=== PATIENT | male | born 1975 | race Caucasian/White ===

== ENCOUNTER 2016-12-27 17:04 | Emergency (ER) | payer OTHER ==
[~2016-12-27] VITALS: Wt 169.5 kg
[~2016-12-27 17:04] MED LIST: CYCL-319 PO; HYDR-3498 PO; NAPR-260 PO
[2016-12-27] MEDS ORDERED: ONDANSETRON 4 MG INJ IV STA (17:49)
[2016-12-27] MEDS ORDERED: morphine 4 MG/ML VIAL IV STA (17:49)
[2016-12-27] MEDS ORDERED: SOD CHLORIDE 0.9% 1,000 ML IV STA (17:49)
[2016-12-27] MEDS ORDERED: BUPR300T48 PO (18:00)
[2016-12-27] MEDS ORDERED: VENL75CA89 PO (18:00)
[2016-12-27 18:08] LABS: BASOPHIL # 0.1 10^3/ul (0.0-0.1); BASOPHILS % 0.3 % (0.0-2.0); CONDITION 1; EOSINOPHILS % 0.2 % (0.0-7.0); HEMATOCRIT 45.6 % (42.0-52.0); HEMOGLOBIN 15.9 g/dl (14.0-18.0); LYMPHOCYTES # 2.4 10^3/ul (0.8-2.9); LYMPHOCYTES % 14.7 % (15.0-51.0); MEAN CORPUSCULAR HEMOGLOBIN 30.6 pg (29.0-33.0); MEAN CORPUSCULAR HGB CONC 34.8 g/dl (32.0-37.0); MEAN CORPUSCULAR VOLUME 87.9 fl (82.0-101.0); MEAN PLATELET VOLUME 9.4 fl (7.4-10.4); MONOCYTE # 0.6 10^3/ul (0.3-0.9); MONOCYTES % 3.8 % (0.0-11.0); NEUTROPHIL # 13.2 10^3/ul (1.6-7.5); PLATELET COUNT 295 10^3/UL (140-440); RED BLOOD COUNT 5.19 10^6/ul (4.70-6.10); RED CELL DISTRIBUTION WIDTH 14.4 % (11.5-14.5); UNCORRECTED WBC 16.3 10^3/ul (4.8-10.8); WHITE BLOOD COUNT 16.3 10^3/ul (4.8-10.8)
[2016-12-27 18:19] LABS: ALBUMIN 4.5 g/dl (3.3-4.9); CHLORIDE 104 mmol/L (97-110); POTASSIUM 4.2 mmol/L (3.5-5.1); SODIUM 145 mmol/L (135-144)
[2016-12-27 18:21] LABS: BILIRUBIN,INDIRECT 0.5 mg/dl (0-1.1); BILIRUBIN,TOTAL 0.5 mg/dl (0.2-1.3); CREATININE 1.09 mg/dl (0.61-1.24)
[2016-12-27 18:22] LABS: ALANINE AMINOTRANSFERASE 36 IU/L (13-69); ALBUMIN/GLOBULIN RATIO 1.18; ALKALINE PHOSPHATASE 103 IU/L (42-121); ANION GAP 19 (8-16); ASPARTATE AMINO TRANSFERASE 25 IU/L (15-46); BLOOD UREA NITROGEN 18 mg/dl (7-20); CARBON DIOXIDE 26 mmol/L (21-31); GLUCOSE 154 mg/dl (70-220); TOTAL PROTEIN 8.3 g/dl (6.1-8.1)
[2016-12-27 18:26] LABS: INR 0.93; PROTIME 12.5 Sec (12.2-14.2)
[2016-12-27 18:27] LABS: PARTIAL THROMBOPLASTIN TIME 28.4 Sec (25.0-35.0)
[2016-12-27] MEDS ORDERED: HYDROmorphONE 1 MG/ML SYG IV STA (18:29)
[2016-12-27 18:34] LABS: TROPONIN-I < 0.012 ng/ml (0.00-0.12)
--- NOTE | 2016-12-27 19:15 | RADRPT ---
PROCEDURE: CT abdomen and pelvis without IV contrast. CLINICAL INDICATION: Abdominal pain TECHNIQUE: CT scan of the abdomen and pelvis without contrast was performed on the [facility] volumetric [address] scanner. The patient was scanned without intravenous contrast. Coronal and sagittal refo rmatted images were obtained from the axial source images. The CTDI vol is 23.80 mGy and the DLP is 1592.8 mGy-cm. COMPARISON: None. FINDINGS: CT abdomen: The lung bases are clear. The heart size is not enlarged and is without pericardial thickening or e ffusion. The liver is normal in size with fatty infiltration and is without focal mass or intrahepatic biliar y dilatation. The spleen is normal in size and homogeneous in density. The stomach is grossly unre markable. The pancreas as visualized is normal. A gallstone is seen. The common bile duct dilatat ion is seen. multiple bilateral adrenal nodules are seen. The largest nodule is seen in the left ad renal gland measuring approximately 1.8 cm in maximal diameter. The kidneys are symmetrically unrem arkable as well. Mild to moderate right hydronephrosis is seen. No obstructing stone or mass is see n. Hyperdense lesion is seen in the lower pole of the right kidney measuring approximately 5 x 5.1 cm in size. Mild right perinephric soft tissue stranding is seen. No renal calculus or mass lesio n is seen. The aorta is of normal in caliber. There is no retroperitoneal lymphadenopathy. The caren hepatis region is clear. The small and large bowel and mesentery, as visualized, are unremarkable. The norm al appendix is identified. CT pelvis: The pelvic organs are normal. The pelvic sidewalls and inguinal regions are clear. No pelvic mass, lymphadenopathy, or free fluid is seen. No acute inflammation is seen. The urinary bladder is wit hin normal limits. Degenerative spondylosis of the lumbar spine is seen. No osteolytic or osteoblastic lesion is detec arsen. IMPRESSION: 1. Mild to moderate right hydronephrosis without evidence of obstructing stone. The findings may b e secondary to a pass stone. The possibility of a ureteropelvic junction obstruction should also be considered. 2. Cholelithiasis. 3. Hyperdense right adrenal structure, questionable at this represents a hyperdense cyst. Confirma tion with a renal ultrasound is recommended. 4. Fatty infiltration of the liver. 5. Bilateral adrenal nodules. Consider further evaluation with a CT adrenal protocol or MRI as cli nically warranted. RPTAT: HPNM Reinaldo Wolf Physician Date Time Electronically viewed and signed by Reinaldo Wolf, Physician on 12/27/2016 19:15 /
[2016-12-27 19:48] LABS: URINE BLOOD (Dip) POC 2+ (NEGATIVE)
[2016-12-27 20:09] LABS: ADD UMIC YES; URINE BILIRUBIN (Dip) NEGATIVE (NEGATIVE); URINE BLOOD (Dip) 2+ (NEGATIVE); URINE COLOR LT. YELLOW (YELLOW); URINE GLUCOSE (Dip) NEGATIVE (NEGATIVE); URINE KETONES (Dip) 40 (NEGATIVE); URINE LEUKOCYTE ESTERASE (Dip) NEGATIVE (NEGATIVE); URINE NITRITE (Dip) NEGATIVE (NEGATIVE); URINE TOTAL PROTEIN (Dip) TRACE (NEGATIVE); URINE UROBILINOGEN (Dip) 0.2 E.U./dL (0.1-1.0)
[2016-12-27 20:30] LABS: BACTERIA,URINE FEW; TRANSITIONAL EPI CELLS,URINE FEW
[2016-12-27] MEDS ORDERED: ONDA4TAB14 PO (20:38)
[2016-12-27] MEDS ORDERED: HYDR-902 PO (20:38)
[2016-12-27] MEDS ORDERED: IBUP-1542 PO (20:38)
--- NOTE | 2016-12-27 20:40 | ERD ---
ER Documentation Chief Complaint Date/Time DATE: 12/27/16 TIME: 20:39 Chief Complaint r. sided abd pain, n/v. actively wretching in triage, sweating heavily HPI Patient is a 41-year-old male with no medical problems who presents with abdominal pain. The patient's right lower quadrant abdominal pain and vomiting which started today at 12 PM. It is been continuous vomiting and he does have sweating. He has had no treatment as of yet. The pain is sharp in nature. ROS All systems reviewed and are negative except as per history of present illness. Medications Home Meds Active Scripts Ondansetron (Ondansetron Odt) 4 Mg Tab.rapdis, 4 MG PO Q6H Y for NAUSEA AND/OR VOMITING, #30 TAB Prov:KEREN QUIROZ MD 12/27/16 Hydrocodone/Acetaminophen ([place] 10-325 Tablet) 1 Each Tablet, 1 TAB PO Q6H Y for PAIN, #12 TAB Prov:KEREN QUIROZ MD 12/27/16 Ibuprofen* (Motrin*) 600 Mg Tab, 600 MG PO Q6H Y for PAIN AND OR ELEVATED TEMP, #30 TAB Prov:KEREN QUIROZ MD 12/27/16 Reported Medications Venlafaxine Hcl* (Venlafaxine Hcl ER*) 75 Mg Cap.er.24h, 75 MG PO DAILY, CAP 12/27/16 Bupropion Hcl* (Wellbutrin XL*) 300 Mg Tab.sr.24h, 300 MG PO DAILY, TAB.SA 12/27/16 Discontinued Scripts Cyclobenzaprine Hcl* (Cyclobenzaprine Hcl*) 10 Mg Tablet, 10 MG PO TID, #15 TAB Prov:PINA GALARZA PA-C 02/20/16 Naproxen* (Naprosyn*) 500 Mg Tablet, 500 MG PO BID Y for PAIN AND/OR INFLAMMATION, #30 TAB Prov:PINA GALARZA PA-C 02/20/16 Hydrocodone Bit-Acetaminophen* ([place]*) 5-325 Mg Tab, 1 TAB PO Q6 Y for PAIN, # 7 TAB Prov:PINA GALARZA PA-C 02/20/16 Allergies Allergies: Coded Allergies: No Known Allergy (Unverified , 12/27/16) PMhx/Soc Medical and Surgical Hx: pt denies Medical Hx History of Surgery: No Anesthesia Reaction: No Hx Neurological Disorder: No Hx Respiratory Disorders: No Hx Cardiac Disorders: No Hx Psychiatric Problems: No Hx Miscellaneous Medical Probl: No Hx Alcohol Use: No Hx Substance Use: No Hx Tobacco Use: No Smoking Status: Never smoker FmHx Family History: diabetes Physical Exam Vitals Vital Signs Date Time Temp Pulse Resp B/P Pulse Ox O2 Delivery O2 Flow Rate FiO2 12/27/16 17:20 96.6 87 24 184/105 97 Physical Exam Const: Moderate distress secondary to pain Head: Atraumatic Eyes: Normal Conjunctiva ENT: Normal External Ears, Nose and Mouth. Neck: Full range of motion..~ No meningismus. Resp: Clear to auscultation bilaterally Cardio: Regular rate and rhythm, no murmurs Abd: Soft, right lower quadrant tenderness to palpation without rebound or guarding Skin: Diaphoresis Back: No midline or flank tenderness Ext: No cyanosis, or edema Neur: Awake and alert Psych: Normal Mood and Affect Result Diagram: 12/27/16 1800 12/27/16 1800 Results 24 hrs Laboratory Tests Test 12/27/16 18:00 12/27/16 19:49 12/27/16 19:50 Activated Partial Thromboplast Time 28.4Sec Alanine Aminotransferase (ALT/SGPT) 36IU/L Albumin 4.5g/dl Albumin/Globulin Ratio 1.18 Alkaline Phosphatase 103IU/L Anion Gap 19 Aspartate Amino Transf (AST/SGOT) 25IU/L Basophils # 0.110^3/ul Basophils % 0.3% Blood Urea Nitrogen 18mg/dl Calcium Level 10.0mg/dl Carbon Dioxide Level 26mmol/L Chloride Level 104mmol/L Creatinine 1.09mg/dl Direct Bilirubin 0.00mg/dl Eosinophils # 0.010^3/ul Eosinophils % 0.2% Globulin 3.80g/dl Glucose Level 154mg/dl Hematocrit 45.6% Hemoglobin 15.9g/dl INR International Normalized Ratio 0.93 Indirect Bilirubin 0.5mg/dl Lipase 42U/L Lymphocytes # 2.410^3/ul Lymphocytes % 14.7% Mean Corpuscular Hemoglobin 30.6pg Mean Corpuscular Hemoglobin Concent 34.8g/dl Mean Corpuscular Volume 87.9fl Mean Platelet Volume 9.4fl Monocytes # 0.610^3/ul Monocytes % 3.8% Neutrophils # 13.210^3/ul Neutrophils % 81.0% Nucleated Red Blood Cells # 0.010^3/ul Nucleated Red Blood Cells % 0.0/100WBC Platelet Count 46693^3/UL Potassium Level 4.2mmol/L Prothrombin Time 12.5Sec Prothrombin Time Ratio 1.0 Red Blood Count 5.1910^6/ul Red Cell Distribution Width 14.4% Sodium Level 145mmol/L Total Bilirubin 0.5mg/dl Total Protein 8.3g/dl Troponin I < 0.012ng/ml White Blood Count 16.310^3/ul Bedside Urine Blood 2+ Bedside Urine Glucose (UA) Negative Bedside Urine Ketones (LAB) 2+ Bedside Urine Leukocyte Esterase (L Negative Bedside Urine Nitrite (LAB) Negative Bedside Urine Protein (LAB) Trace Bedside Urine pH (LAB) 6.0 Urine Bacteria FEW Urine Bilirubin NEGATIVE Urine Clarity HAZY Urine Color LT. YELLOW Urine Glucose NEGATIVE% Urine Hemoglobin 2+ Urine Ketones 40 Urine Leukocyte Esterase NEGATIVE Urine Microscopic RBC 10-25/HPF Urine Microscopic WBC NONE SEEN/HPF Urine Nitrite NEGATIVE Urine Specific [place] 1.020 Urine Total Protein TRACE Urine Transitional Epithelial Cells FEW Urine Urobilinogen 0.2 E.U./dL Urine pH 6.0 Current Medications Medications (Trade) Dose Ordered Sig/Rikc Route PRN Reason Start Time Stop Time Status Last Admin Dose Admin Sodium Chloride (NS) 1,000 ml @ 1,000 mls/hr Q1H STAT IV 12/27/16 17:49 12/27/16 18:48 DC 12/27/16 18:03 Morphine Sulfate (morphine) 4 mg ONCE STAT IV 12/27/16 17:49 12/27/16 17:50 DC 12/27/16 18:03 Ondansetron HCl (Zofran Inj) 4 mg ONCE STAT IV 12/27/16 17:49 12/27/16 17:50 DC 12/27/16 18:03 Hydromorphone HCl (Dilaudid) 1 mg ONCE STAT IV 12/27/16 18:29 12/27/16 18:30 DC 12/27/16 20:07 Procedures/MDM EKG read by me: Rate/Rhythm: Regular rate and rhythm at a rate of 71 Intervals: Normal Impression: No evidence of ischemia or arrhythmia PROCEDURE: CT abdomen and pelvis without IV contrast. CLINICAL INDICATION: Abdominal pain TECHNIQUE: CT scan of the abdomen and pelvis without contrast was performed on the [facility] volumetric [address] scanner. The patient was scanned without intravenous contrast. Coronal and sagittal reformatted images were obtained from the axial source images. The CTDI vol is 23.80 mGy and the DLP is 1592.8 mGy-cm. COMPARISON: None. FINDINGS: CT abdomen: The lung bases are clear. The heart size is not enlarged and is without pericardial thickening or effusion. The liver is normal in size with fatty infiltration and is without focal mass or intrahepatic biliary dilatation. The spleen is normal in size and homogeneous in density. The stomach is grossly unremarkable. The pancreas as visualized is normal. A gallstone is seen. The common bile duct dilatation is seen. multiple bilateral adrenal nodules are seen. The largest nodule is seen in the left adrenal gland measuring approximately 1.8 cm in maximal diameter. The kidneys are symmetrically unremarkable as well. Mild to moderate right hydronephrosis is seen. No obstructing stone or mass is seen. Hyperdense lesion is seen in the lower pole of the right kidney measuring approximately 5 x 5.1 cm in size. Mild right perinephric soft tissue stranding is seen. No renal calculus or mass lesion is seen. The aorta is of normal in caliber. There is no retroperitoneal lymphadenopathy. The caren hepatis region is clear. The small and large bowel and mesentery, as visualized, are unremarkable. The normal appendix is identified. CT pelvis: The pelvic organs are normal. The pelvic sidewalls and inguinal regions are clear. No pelvic mass, lymphadenopathy, or free fluid is seen. No acute inflammation is seen. The urinary bladder is within normal limits. Degenerative spondylosis of the lumbar spine is seen. No osteolytic or osteoblastic lesion is detected. IMPRESSION: 1. Mild to moderate right hydronephrosis without evidence of obstructing stone. The findings may be secondary to a pass stone. The possibility of a ureteropelvic junction obstruction should also be considered. 2. Cholelithiasis. 3. Hyperdense right adrenal structure, questionable at this represents a hyperdense cyst. Confirmation with a renal ultrasound is recommended. 4. Fatty infiltration of the liver. 5. Bilateral adrenal nodules. Consider further evaluation with a CT adrenal protocol or MRI as clinically warranted. RPTAT: HPNM Physician Gisel Date Time Electronically viewed and signed by Reinaldo Wolf Physician on 12/27/2016 19 :15 Patient is a 41-year-old male presents with right-sided flank pain and vomiting. CT scan shows hydronephrosis with a possible passed kidney stone. There is no sign of acute appendicitis. He has gallstones but no sign of acute cholecystitis. His white blood cell count is elevated but I do not find any sign of infection. His urinalysis shows no sign of pyelonephritis or cystitis. There is hematuria on the urinalysis which would go along with a kidney stone. The patient will need to follow-up closely with her primary doctor tomorrow for reevaluation. I do not think he requires further workup at this time or admission to the hospital. I did give him a copy of his laboratory studies and CT scan. At this point I doubt appendicitis, cholecystitis, pancreatitis, or bowel obstruction. The patient will be given a prescription for ibuprofen, [place], and Zofran. He can return for any worsening symptoms. Departure Diagnosis: Primary Impression: Hydronephrosis Hydronephrosis type: unspecified Qualified Code: N13.30 - Hydronephrosis, unspecified hydronephrosis type Additional Impression: Abdominal pain Abdominal location: unspecified location Qualified Code: R10.9 - Abdominal pain, unspecified location Condition: Fair Patient Instructions: Abdominal Pain, Hydronephrosis Adult Referrals: Your doctor Additional Instructions: Call your primary care doctor TOMORROW for an appointment during the next 1-2 days.See the doctor sooner or return here if your condition worsens before your appointment time. KEREN QUIROZ MD Dec 27, 2016 20:40
[2016-12-27 21:01] VITALS: BP 183/83; PULSE 87; RESP 16; TEMP 98.3
== END 2016-12-27 21:04 | disposition home or self-care (01) ==
LOC: E/R 17:04
DX: N13.30 Unspecified hydronephrosis (principal); R11.2 Nausea with vomiting, unspecified
CPT/HCPCS: 36415; 74176; 80053; 81001; 83690; 84484; 85025; 85610; 85730; 93005; 96361; 96374; 96375; J1170; J2270; J2405; J7030; Z7502; 81003

== ENCOUNTER 2017-01-21 14:55 | Emergency (ER) | payer OTHER ==
[~2017-01-21] VITALS: Wt 159.0 kg
[~2017-01-21 14:55] MED LIST changes: +BUPR300T48 PO; -CYCL-319 PO; -HYDR-3498 PO; +HYDR-902 PO; +IBUP-1542 PO; -NAPR-260 PO; +ONDA4TAB14 PO; +VENL75CA89 PO
[2017-01-21] MEDS ORDERED: morphine 4 MG/ML VIAL IV STA (17:48)
[2017-01-21] MEDS ORDERED: DIAZEPAM 5 MG/ML SYG IV ONE (18:00)
[2017-01-21 18:22] LABS: ADD SCAN DIFF NO
[2017-01-21 18:25] LABS: BASOPHIL # 0.1 10^3/ul (0.0-0.1); BASOPHILS % 0.6 % (0.0-2.0); EOSINOPHILS # 0.2 10^3/ul (0.0-0.5); EOSINOPHILS % 1.4 % (0.0-7.0); HEMATOCRIT 44.8 % (42.0-52.0); HEMOGLOBIN 14.6 g/dl (14.0-18.0); LYMPHOCYTES # 2.9 10^3/ul (0.8-2.9); LYMPHOCYTES % 24.2 % (15.0-51.0); MEAN CORPUSCULAR HGB CONC 32.6 g/dl (32.0-37.0); MEAN CORPUSCULAR VOLUME 92.2 fl (82.0-101.0); MEAN PLATELET VOLUME 11.4 fl (7.4-10.4); MONOCYTE # 0.9 10^3/ul (0.3-0.9); MONOCYTES % 7.6 % (0.0-11.0); NEUTROPHIL # 7.8 10^3/ul (1.6-7.5); NEUTROPHILS % 65.9 % (39.0-77.0); PLATELET COUNT 260 10^3/UL (140-415); RED BLOOD COUNT 4.86 10^6/ul (4.70-6.10); RED CELL DISTRIBUTION WIDTH 14.2 % (11.5-14.5); WHITE BLOOD COUNT 11.9 10^3/ul (4.8-10.8)
[2017-01-21 18:34] LABS: INR 0.91; PARTIAL THROMBOPLASTIN TIME 28.3 Sec (25.0-35.0); PROTIME 12.2 Sec (12.2-14.2)
[2017-01-21 18:35] LABS: CHLORIDE 104 mmol/L (97-110)
[2017-01-21 18:36] LABS: POTASSIUM 3.9 mmol/L (3.5-5.1); SODIUM 146 mmol/L (135-144)
[2017-01-21 18:38] LABS: CREATININE 0.84 mg/dl (0.61-1.24)
[2017-01-21 18:39] LABS: ANION GAP 16 (8-16); BLOOD UREA NITROGEN 23 mg/dl (7-20); CALCIUM 9.7 mg/dl (8.4-10.2); CARBON DIOXIDE 30 mmol/L (21-31); CREATINE KINASE 80 IU/L (23-200); GLUCOSE 89 mg/dl (70-220)
[2017-01-21] MEDS ORDERED: LISI20TA11 PO (18:39)
[2017-01-21] MEDS ORDERED: MULTI PO (18:40)
[2017-01-21] MEDS ORDERED: OMEG500C3 PO (18:41)
[2017-01-21] MEDS ORDERED: RANI75TA13 PO (18:41)
[2017-01-21 18:51] LABS: CK-MB 1.84 ng/ml (0.0-2.4); TROPONIN-I < 0.012 ng/ml (0.00-0.12)
--- NOTE | 2017-01-21 19:30 | RADRPT ---
PROCEDURE: XR Chest. CLINICAL INDICATION: Chest pain. TECHNIQUE: Portable AP semi erect view of the chest was obtained. COMPARISON: None. FINDINGS: The cardiomediastinal silhouette is within normal limits. The lungs are clear. There is no evidenc e for pleural effusion, pneumothorax or pulmonary vascular congestion. The osseous structures are i ntact with no evidence for acute abnormality. RPTAT:HJJR IMPRESSION: No evidence for acute intrathoracic pathology. Physician Arianna Date Time Electronically viewed and signed by Benito Hong Physician on 01/21/2017 19:30 JR/
[2017-01-21 19:43] LABS: D-DIMER 479.42 ng/ml (<460)
--- NOTE | 2017-01-21 19:55 | ERD ---
ER Documentation Chief Complaint Date/Time DATE: 01/21/17 TIME: 19:53 Chief Complaint RIGHT SIDE RIB AND BACK PAIN AFTER COUGHING A FEW DAYS AGO HPI This 41-year-old male presents to the emergency room with right-sided rib pain and back pain after coughing multiple times 2 days ago. This patient states that when he takes a deep breath and he feels pain on his right side which is a sharp pain with no radiation. He denies any palpitations, nausea, vomiting or diaphoresis associated with this. Patient denies any recent travel or recent surgery. ROS All systems reviewed and are negative except as per history of present illness. Medications Home Meds Reported Medications [place]-3 Fatty Acids (Fish Oil) Unknown Strength Capsule, MG PO DAILY, CAP 01/21/17 Ranitidine Hcl* (Zantac*) Unknown Strength Tablet, MG PO DAILY, TAB 01/21/17 Multivitamins* (Theragran*) 1 Tab Tab, 1 TAB PO DAILY, TAB 01/21/17 Lisinopril* (Lisinopril*) 20 Mg Tablet, 20 MG PO DAILY, #30 TAB 01/21/17 Venlafaxine Hcl* (Venlafaxine Hcl ER*) 75 Mg Cap.er.24h, 75 MG PO DAILY, CAP 12/27/16 Bupropion Hcl* (Wellbutrin XL*) 300 Mg Tab.sr.24h, 300 MG PO QAM, TAB.SA 12/27/16 Discontinued Scripts Ondansetron (Ondansetron Odt) 4 Mg Tab.rapdis, 4 MG PO Q6H Y for NAUSEA AND/OR VOMITING, #30 TAB Prov:KEREN QUIROZ MD 12/27/16 Hydrocodone/Acetaminophen ([place] 10-325 Tablet) 1 Each Tablet, 1 TAB PO Q6H Y for PAIN, #12 TAB Prov:KEREN QUIROZ MD 12/27/16 Ibuprofen* (Motrin*) 600 Mg Tab, 600 MG PO Q6H Y for PAIN AND OR ELEVATED TEMP, #30 TAB Prov:KEREN QUIROZ MD 12/27/16 Allergies Allergies: Coded Allergies: No Known Allergy (Unverified , 01/21/17) PMhx/Soc History of Surgery: No Anesthesia Reaction: No Hx Neurological Disorder: No Hx Respiratory Disorders: No Hx Cardiac Disorders: No Hx Psychiatric Problems: No Hx Miscellaneous Medical Probl: No Hx Alcohol Use: No Hx Substance Use: No Hx Tobacco Use: No Smoking Status: Never smoker Physical Exam Vitals Vital Signs Date Time Temp Pulse Resp B/P Pulse Ox O2 Delivery O2 Flow Rate FiO2 01/21/17 18:47 98.5 93 20 155/91 100 Nasal Cannula 2.0 01/21/17 18:13 Nasal Cannula 01/21/17 15:02 98.6 101 20 156/86 96 Physical Exam INITIAL VITAL SIGNS: Reviewed by me GENERAL: The patient is well developed and appropriate for usual state of health in no apparent distress HEENT: Pupils equal, round, and reactive to light. EOMI. There is no scleral icterus. NECK: C-spine is soft and supple, there is no meningismus. There is no cervical lymphadenopathy. LUNGS: Clear to auscultation bilaterally. There are no rales, wheezes or rhonchi. HEART: Regular rate and rhythm, no murmurs, clicks, rubs or gallops. ABDOMEN: Soft, non-tender, non-distended. There are bowel sounds in all four quadrants. No rebound or guarding. EXTREMITIES: There is no peripheral cyanosis or edema. No focal swelling or erythema. NEUROLOGICAL: The patient moves all four extremities with 5/5 strength. Cranial nerves II - XII are intact. Normal gait. Alert and oriented SKIN: There is no apparent rash or petechiae. HEME/LYMPHATIC: There is no evidence of excessive bruising or lymphedema. PSYCHIATRIC: The patient does not appear anxious or depressed. Result Diagram: 01/21/17181201/21/17 1813 Results 24 hrs Laboratory Tests Test 01/21/17 18:13 Activated Partial Thromboplast Time 28.3Sec Anion Gap 16 Basophils # 0.110^3/ul Basophils % 0.6% Blood Urea Nitrogen 23mg/dl Calcium Level 9.7mg/dl Carbon Dioxide Level 30mmol/L Chloride Level 104mmol/L Creatine Kinase 80IU/L Creatine Kinase Index 2.3 Creatinine 0.84mg/dl Creatinine Kinase MB (Mass) 1.84ng/ml D-Dimer 479.42ng/ml D-Dimer Comment Eosinophils # 0.210^3/ul Eosinophils % 1.4% Glucose Level 89mg/dl Hematocrit 44.8% Hemoglobin 14.6g/dl INR International Normalized Ratio 0.91 Lymphocytes # 2.910^3/ul Lymphocytes % 24.2% Mean Corpuscular Hemoglobin 30.0pg Mean Corpuscular Hemoglobin Concent 32.6g/dl Mean Corpuscular Volume 92.2fl Mean Platelet Volume 11.4fl Monocytes # 0.910^3/ul Monocytes % 7.6% Neutrophils # 7.810^3/ul Neutrophils % 65.9% Nucleated Red Blood Cells # 0.010^3/ul Nucleated Red Blood Cells % 0.0/100WBC Platelet Count 47146^3/UL Potassium Level 3.9mmol/L Prothrombin Time 12.2Sec Prothrombin Time Ratio 1.0 Red Blood Count 4.8610^6/ul Red Cell Distribution Width 14.2% Sodium Level 146mmol/L Troponin I < 0.012ng/ml White Blood Count 11.910^3/ul Current Medications Medications (Trade) Dose Ordered Sig/Rick Route PRN Reason Start Time Stop Time Status Last Admin Dose Admin Morphine Sulfate (morphine) 4 mg ONCE STAT IV 01/21/17 17:48 01/21/17 17:50 DC 01/21/17 18:09 Diazepam (Valium) 5 mg ONCE ONCE IV 01/21/17 18:00 01/21/17 18:01 DC 01/21/17 18:09 Morphine Sulfate (morphine) 8 mg ONCE ONCE IV 01/21/17 20:00 01/21/17 20:01 01/21/17 19:38 Procedures/MDM EKG: Rate/Rhythm: [Normal Sinus Rhythm] QRS, ST, T-waves: [No changes consistent w/ acute ischemia] Impression: [No evidence of ischemia or arrhythmia] Chest X-ray 1V Interpreted by me: Soft Tissue: No acute abnormalities Bones: No acute abnormalities Mediastinum/Cardiac Silhouette/Lungs: [No acute abnormalities] This 41-year-old male presents to the ER for evaluation of right-sided rib pain worse with deep inspiration. When I evaluated him I did not note any paradoxical chest wall movement. He is not hypoxic, not tachycardic. Lab work was obtained including a troponin which is normal. Chest x-ray is also clear. D-dimer is slightly higher than normal limits however this patient is not hypoxic, no respiratory distress and his pain is completely resolved with administration of morphine. Patient will be discharged home with a prescription for [place], and Valium to take only at night before he goes to sleep for chest wall strain. Departure Diagnosis: Primary Impression: Chest wall muscle strain Condition: Stable EDGARDO CANTRELL DO Jan 21, 2017 19:55
[2017-01-21] MEDS ORDERED: DIAZ-90 PO (19:57)
[2017-01-21] MEDS ORDERED: HYDR-906 PO (19:57)
[2017-01-21] MEDS ORDERED: morphine 10 MG INJ IV ONE (20:00)
[2017-01-21 20:18] VITALS: BP 149/90; PULSE 96; RESP 20; TEMP 98.2
== END 2017-01-21 20:28 | disposition home or self-care (01) ==
LOC: E/R 14:55
DX: S29.011A Strain of muscle and tendon of front wall of thorax, initial encounter (principal); R07.89 Other chest pain; R40.2142 Coma scale, eyes open, spontaneous, at arrival to emergency department; R40.2252 Coma scale, best verbal response, oriented, at arrival to emergency department; R40.2362 Coma scale, best motor response, obeys commands, at arrival to emergency department; X58.XXXA Exposure to other specified factors, initial encounter; Y92.9 Unspecified place or not applicable
CPT/HCPCS: 36415; 71010; 80048; 82550; 82553; 84484; 85025; 85378; 85610; 85730; 93005; 96374; 96375; J2270; J3360; Z7502

== ENCOUNTER 2017-04-16 08:46 | Emergency (ER) | payer OTHER ==
[~2017-04-16] VITALS: Ht 193 cm; Wt 162.0 kg
[~2017-04-16 08:46] MED LIST changes: +DIAZ-90 PO; -HYDR-902 PO; +HYDR-906 PO; -IBUP-1542 PO; +LISI20TA11 PO; +MULTI PO; +OMEG500C3 PO; -ONDA4TAB14 PO; +RANI75TA13 PO
[2017-04-16 08:55] VITALS: Ht 193 cm; Wt 162.0 kg
[2017-04-16] MEDS ORDERED: HYDROmorphONE 2 MG/ML SYG IM STA (09:22)
[2017-04-16] MEDS ORDERED: ONDANSETRON (ODT) 4 MG TAB ODT STA (09:22)
[2017-04-16 10:13] LABS: ADD UMIC YES; URINE BILIRUBIN (Dip) 1+ (NEGATIVE); URINE BLOOD (Dip) 3+ (NEGATIVE); URINE COLOR DK. RED (YELLOW); URINE GLUCOSE (Dip) NEGATIVE (NEGATIVE); URINE KETONES (Dip) TRACE (NEGATIVE); URINE LEUKOCYTE ESTERASE (Dip) NEGATIVE (NEGATIVE); URINE NITRITE (Dip) NEGATIVE (NEGATIVE); URINE TOTAL PROTEIN (Dip) 4+ (NEGATIVE); URINE UROBILINOGEN (Dip) 1.0 E.U./dL (0.1-1.0)
[2017-04-16 10:36] LABS: BACTERIA,URINE FEW; ICTOTEST NEGATIVE (NEGATIVE); URINE RBCS >200 /HPF (0)
[2017-04-16] MEDS ORDERED: LORA1TAB PO (10:44)
[2017-04-16] MEDS ORDERED: HYDR-902 PO (10:47)
[2017-04-16] MEDS ORDERED: ONDA4TAB14 PO (10:47)
--- NOTE | 2017-04-16 11:14 | ERD ---
ER Documentation Chief Complaint Date/Time DATE: 04/16/17 TIME: 11:12 Chief Complaint RIGHT FLANK PAIN, BLOOD IN URINE SINCE 2299, DX: KIDNEY MASS 04/04 HPI Patient is a 41-year-old male who presents with hematuria. The patient said that he started with hematuria last night. He has nausea and pain. The pain is in the right flank. He has no fevers. He says that he is out of pain medications. He said that on April 04 he was diagnosed with a "mass on his kidney " and that they think it is cancer. ROS All systems reviewed and are negative except as per history of present illness. Medications Home Meds Active Scripts Ondansetron (Ondansetron Odt) 4 Mg Tab.rapdis, 4 MG PO Q6H Y for NAUSEA AND/OR VOMITING, #30 TAB Prov:KEREN QUIROZ MD 04/16/17 Hydrocodone/Acetaminophen ([place] 10-325 Tablet) 1 Each Tablet, 1 TAB PO Q6H Y for PAIN, #7 TAB Prov:KEREN QUIROZ MD 04/16/17 Hydrocodone/Acetaminophen ([place] 5-325 Tablet) 1 Each Tablet, 1 TAB PO Q6H Y for PAIN, #10 TAB Prov:EDGARDO CANTRELL DO 01/21/17 Reported Medications Lorazepam* (Lorazepam*) 1 Mg Tablet, 1 MG PO DAILY Y for ANXIETY, #30 TAB 04/16/17 [place]-3 Fatty Acids (Fish Oil) Unknown Strength Capsule, MG PO DAILY, CAP 01/21/17 Ranitidine Hcl* (Zantac*) Unknown Strength Tablet, MG PO DAILY, TAB 01/21/17 Multivitamins* (Theragran*) 1 Tab Tab, 1 TAB PO DAILY, TAB 01/21/17 Lisinopril* (Lisinopril*) 20 Mg Tablet, 20 MG PO DAILY, #30 TAB 01/21/17 Venlafaxine Hcl* (Venlafaxine Hcl ER*) 75 Mg Cap.er.24h, 75 MG PO DAILY, CAP 12/27/16 Bupropion Hcl* (Wellbutrin XL*) 300 Mg Tab.sr.24h, 300 MG PO QAM, TAB.SA 12/27/16 Discontinued Scripts Diazepam* (Valium*) 5 Mg Tablet, 5 MG PO QHS Y for MUSCLE SPASMS, #10 TAB Prov:EDGARDO CANTRELL DO 01/21/17 Allergies Allergies: Coded Allergies: No Known Allergy (Unverified , 01/21/17) PMhx/Soc Medical and Surgical Hx: pt denies Medical Hx, pt denies Surgical Hx History of Surgery: No Anesthesia Reaction: No Hx Neurological Disorder: No Hx Respiratory Disorders: No Hx Cardiac Disorders: No Hx Psychiatric Problems: No Hx Miscellaneous Medical Probl: No Hx Alcohol Use: No Hx Substance Use: No Hx Tobacco Use: No Smoking Status: Never smoker FmHx Family History: No diabetes Physical Exam Vitals Vital Signs Date Time Temp Pulse Resp B/P Pulse Ox O2 Delivery O2 Flow Rate FiO2 04/16/17 09:58 90 22 149/103 99 Room Air 04/16/17 08:55 98.3 86 20 142/93 97 Physical Exam Const: Mild distress secondary to pain Head: Atraumatic Eyes: Normal Conjunctiva ENT: Normal External Ears, Nose and Mouth. Neck: Full range of motion..~ No meningismus. Resp: Clear to auscultation bilaterally Cardio: Regular rate and rhythm, no murmurs Abd: Right-sided flank tenderness to palpation, no abdominal pain to palpation Skin: No petechiae or rashes Back: No midline or flank tenderness Ext: No cyanosis, or edema Neur: Awake and alert Psych: Normal Mood and Affect Results 24 hrs Laboratory Tests Test 04/16/17 09:40 Urine Color DK. RED Urine Clarity BLOODY Urine pH 5.0 Urine Specific [place] 1.025 Urine Ketones TRACE Urine Nitrite NEGATIVE Urine Bilirubin 1+ Urine Ictotest NEGATIVE Urine Urobilinogen 1.0 E.U./dL Urine Leukocyte Esterase NEGATIVE Urine Microscopic RBC >200/HPF Urine Microscopic WBC 0-2/HPF Urine Bacteria FEW Urine Hemoglobin 3+ Urine Glucose NEGATIVE% Urine Total Protein 4+ Current Medications Medications (Trade) Dose Ordered Sig/Rick Route PRN Reason Start Time Stop Time Status Last Admin Dose Admin Hydromorphone HCl (Dilaudid) 2 mg ONCE STAT IM 04/16/17 09:22 04/16/17 09:23 DC 04/16/17 09:37 Ondansetron HCl (Zofran Odt) 4 mg ONCE STAT ODT 04/16/17 09:22 04/16/17 09:23 DC 04/16/17 09:36 Acetaminophen/ Hydrocodone Bitart ([place] (10/325)) 1 tab ONCE ONCE PO 04/16/17 11:30 04/16/17 11:31 Procedures/MDM Urinalysis shows hematuria without infection. Patient is a 41-year-old male who presents with hematuria. He also has a kidney mass which is concerning for kidney cancer. He has follow-up with his primary doctor tomorrow for this issue. I do not believe he requires further workup or admission to the hospital at this time as I do believe that outpatient workup is appropriate. The patient was given Dilaudid and Zofran as well as [place] for pain. He can return for any worsening symptoms. I will give a prescription for [place] and Zofran. Departure Diagnosis: Primary Impression: Hematuria Additional Impressions: Flank pain Kidney mass Condition: Fair Patient Instructions: Hematuria Referrals: Your doctor Additional Instructions: Follow up with your doctor tomorrow at your scheduled appointment. KEREN QUIROZ MD Apr 16, 2017 11:14
[2017-04-16 11:23] VITALS: BP 139/91; PULSE 92; RESP 18
[2017-04-16] MEDS ORDERED: HYDROCODONE/APAP (10/325) TAB PO ONE (11:30)
== END 2017-04-16 11:25 | disposition home or self-care (01) ==
LOC: E/R 08:46
DX: R31.9 Hematuria, unspecified (principal); N28.89 Other specified disorders of kidney and ureter; R11.0 Nausea; R40.2142 Coma scale, eyes open, spontaneous, at arrival to emergency department; R40.2252 Coma scale, best verbal response, oriented, at arrival to emergency department; R40.2362 Coma scale, best motor response, obeys commands, at arrival to emergency department
CPT/HCPCS: 81001; 96372; J1170; Z7502; Z7610

== ENCOUNTER 2017-05-01 15:03 | Emergency (ER) | payer OTHER ==
[~2017-05-01] VITALS: Ht 193 cm; Wt 164.5 kg
[~2017-05-01 15:03] MED LIST changes: -DIAZ-90 PO; +HYDR-902 PO; +LORA1TAB PO; +ONDA4TAB14 PO
[2017-05-01 15:09] VITALS: Ht 193 cm; Wt 164.5 kg
[2017-05-01] MEDS ORDERED: ONDANSETRON (ODT) 4 MG TAB ODT STA (16:24)
[2017-05-01] MEDS ORDERED: HYDROmorphONE 1 MG/ML SYG IM STA (16:24)
[2017-05-01] MEDS ORDERED: ONDANSETRON 4 MG INJ IV STA (17:30)
[2017-05-01] MEDS ORDERED: HYDROmorphONE 1 MG/ML SYG IV STA (17:30)
[2017-05-01 18:14] LABS: ADD SCAN DIFF NO
[2017-05-01 18:16] LABS: ABNORMAL IP MESSAGE 1; BASOPHIL # 0.1 10^3/ul (0.0-0.1); BASOPHILS % 0.5 % (0.0-2.0); EOSINOPHILS # 0.2 10^3/ul (0.0-0.5); HEMATOCRIT 47.6 % (42.0-52.0); HEMOGLOBIN 15.3 g/dl (14.0-18.0); LYMPHOCYTES # 4.6 10^3/ul (0.8-2.9); LYMPHOCYTES % 20.4 % (15.0-51.0); MEAN CORPUSCULAR HEMOGLOBIN 29.8 pg (29.0-33.0); MEAN CORPUSCULAR HGB CONC 32.1 g/dl (32.0-37.0); MEAN CORPUSCULAR VOLUME 92.8 fl (82.0-101.0); MEAN PLATELET VOLUME 11.2 fl (7.4-10.4); MONOCYTE # 1.5 10^3/ul (0.3-0.9); MONOCYTES % 6.8 % (0.0-11.0); NEUTROPHIL # 15.8 10^3/ul (1.6-7.5); NEUTROPHILS % 70.7 % (39.0-77.0); PLATELET COUNT 372 10^3/UL (140-415); RED BLOOD COUNT 5.13 10^6/ul (4.70-6.10); RED CELL DISTRIBUTION WIDTH 13.8 % (11.5-14.5); WHITE BLOOD COUNT 22.4 10^3/ul (4.8-10.8)
[2017-05-01 18:37] LABS: ALBUMIN 5.1 g/dl (3.3-4.9); ALBUMIN/GLOBULIN RATIO 1.24; BILIRUBIN,INDIRECT 0.4 mg/dl (0-1.1); BILIRUBIN,TOTAL 0.4 mg/dl (0.2-1.3); CALCIUM 10.8 mg/dl (8.4-10.2); CREATININE 1.36 mg/dl (0.61-1.24); POTASSIUM 4.4 mmol/L (3.5-5.1); TOTAL PROTEIN 9.2 g/dl (6.1-8.1)
--- NOTE | 2017-05-01 18:45 | ERD ---
ER Documentation Chief Complaint Date/Time DATE: 05/01/17 TIME: 18:42 Chief Complaint "I HAVE KIDNEY CANCER I NEED PAIN MEDS" PER PATIENT HPI This patient is a 41-year-old male presenting to the emergency department with complaint of sudden onset right flank pain which began this morning. The pain is worsening. The pain is constant. The patient denies alleviating factors. He denies aggravating factors. He reports nausea but no vomiting. He denies hematuria, fevers, chills, or other symptoms. ROS All systems reviewed and are negative except as per history of present illness. Medications Home Meds Active Scripts Ondansetron (Zofran Odt) 4 Mg Tab.rapdis, 4 MG PO Q4, #15 Prov:MELANIE ROMAN PA-C 05/01/17 Hydrocodone/Acetaminophen ([place] 5-325 Tablet) 1 Each Tablet, 1 TAB PO Q6H Y for PAIN, #10 TAB Prov:MELANIE ROMAN PA-C 05/01/17 Cephalexin* (Keflex*) 500 Mg Capsule, 500 MG PO TID for 7 Days, CAP Prov:MELANIE ROMAN PA-C 05/01/17 Ondansetron (Ondansetron Odt) 4 Mg Tab.rapdis, 4 MG PO Q6H Y for NAUSEA AND/OR VOMITING, #30 TAB Prov:KEREN QUIROZ MD 04/16/17 Hydrocodone/Acetaminophen ([place] 10-325 Tablet) 1 Each Tablet, 1 TAB PO Q6H Y for PAIN, #7 TAB Prov:KEREN QUIROZ MD 04/16/17 Hydrocodone/Acetaminophen ([place] 5-325 Tablet) 1 Each Tablet, 1 TAB PO Q6H Y for PAIN, #10 TAB Prov:EDGARDO CANTRELL DO 01/21/17 Reported Medications Lorazepam* (Lorazepam*) 1 Mg Tablet, 1 MG PO DAILY Y for ANXIETY, #30 TAB 04/16/17 [place]-3 Fatty Acids (Fish Oil) Unknown Strength Capsule, MG PO DAILY, CAP 01/21/17 Ranitidine Hcl* (Zantac*) Unknown Strength Tablet, MG PO DAILY, TAB 01/21/17 Multivitamins* (Theragran*) 1 Tab Tab, 1 TAB PO DAILY, TAB 01/21/17 Lisinopril* (Lisinopril*) 20 Mg Tablet, 20 MG PO DAILY, #30 TAB 01/21/17 Venlafaxine Hcl* (Venlafaxine Hcl ER*) 75 Mg Cap.er.24h, 75 MG PO DAILY, CAP 12/27/16 Bupropion Hcl* (Wellbutrin XL*) 300 Mg Tab.sr.24h, 300 MG PO QAM, TAB.SA 12/27/16 Allergies Allergies: Coded Allergies: No Known Allergy (Unverified , 01/21/17) PMhx/Soc History of Surgery: No Anesthesia Reaction: No Hx Neurological Disorder: No Hx Respiratory Disorders: No Hx Cardiac Disorders: No Hx Psychiatric Problems: No Hx Miscellaneous Medical Probl: No Hx Alcohol Use: No Hx Substance Use: No Hx Tobacco Use: No Smoking Status: Never smoker FmHx Noncontributory for chief complaint Physical Exam Vitals Vital Signs Date Time Temp Pulse Resp B/P Pulse Ox O2 Delivery O2 Flow Rate FiO2 05/01/17 20:25 79 16 134/81 97 Room Air 05/01/17 15:09 95.9 104 18 179/84 97 Physical Exam Const: Morbidly obese male appears in acute distress secondary to pain. Head: Atraumatic Eyes: Normal Conjunctiva ENT: Normal External Ears, Nose and Mouth. Neck: Full range of motion..~ No meningismus. Resp: Clear to auscultation bilaterally Cardio: Regular rate and rhythm, no murmurs Abd: Soft, non tender, non distended. Normal bowel sounds Skin: No petechiae or rashes Back: The patient has tenderness to the right flank area. Ext: No cyanosis, or edema Neur: Awake and alert Psych: Normal Mood and Affect Result Diagram: 05/01/17 1745 05/01/17 1745 Results 24 hrs Laboratory Tests Test 05/01/17 17:45 White Blood Count 22.410^3/ul Red Blood Count 5.1310^6/ul Hemoglobin 15.3g/dl Hematocrit 47.6% Mean Corpuscular Volume 92.8fl Mean Corpuscular Hemoglobin 29.8pg Mean Corpuscular Hemoglobin Concent 32.1g/dl Red Cell Distribution Width 13.8% Platelet Count 25186^3/UL Mean Platelet Volume 11.2fl Neutrophils % 70.7% Lymphocytes % 20.4% Monocytes % 6.8% Eosinophils % 1.0% Basophils % 0.5% Nucleated Red Blood Cells % 0.0/100WBC Neutrophils # 15.810^3/ul Lymphocytes # 4.610^3/ul Monocytes # 1.510^3/ul Eosinophils # 0.210^3/ul Basophils # 0.110^3/ul Nucleated Red Blood Cells # 0.010^3/ul Urine Color YELLOW Urine Clarity SLIGHTLY CLOUDY Urine pH 8.0 Urine Specific [place] 1.017 Urine Ketones TRACEmg/dL Urine Nitrite NEGATIVEmg/dL Urine Bilirubin NEGATIVEmg/dL Urine Urobilinogen NEGATIVEmg/dL Urine Leukocyte Esterase TRACELeu/ul Urine Microscopic RBC 54/HPF Urine Microscopic WBC 6/HPF Urine Bacteria FEW/HPF Urine Mucus FEW/HPF Urine Hemoglobin 3+mg/dL Urine Glucose NEGATIVEmg/dL Urine Total Protein NEGATIVEmg/dl Sodium Level 144mmol/L Potassium Level 4.4mmol/L Chloride Level 100mmol/L Carbon Dioxide Level 30mmol/L Anion Gap 18 Blood Urea Nitrogen 22mg/dl Creatinine 1.36mg/dl Glucose Level 111mg/dl Calcium Level 10.8mg/dl Total Bilirubin 0.4mg/dl Direct Bilirubin 0.00mg/dl Indirect Bilirubin 0.4mg/dl Aspartate Amino Transf (AST/SGOT) 22IU/L Alanine Aminotransferase (ALT/SGPT) 38IU/L Alkaline Phosphatase 104IU/L Total Protein 9.2g/dl Albumin 5.1g/dl Globulin 4.10g/dl Albumin/Globulin Ratio 1.24 Current Medications Medications (Trade) Dose Ordered Sig/Rick Route PRN Reason Start Time Stop Time Status Last Admin Dose Admin Ondansetron HCl (Zofran Odt) 4 mg ONCE STAT ODT 05/01/17 16:24 05/01/17 16:25 DC 05/01/17 16:39 Hydromorphone HCl (Dilaudid) 1 mg ONCE STAT IM 05/01/17 16:24 05/01/17 16:25 DC 05/01/17 16:39 Hydromorphone HCl (Dilaudid) 1 mg ONCE STAT IV 05/01/17 17:30 05/01/17 17:32 DC 05/01/17 17:46 Ondansetron HCl (Zofran Inj) 4 mg ONCE STAT IV 05/01/17 17:30 05/01/17 17:32 DC 05/01/17 17:46 Procedures/MDM EMERGENCY DEPARTMENT COURSE / MEDICAL DECISION MAKING: This is a 41-year-old male who comes to the emergency room secondary to complaints of right-sided flank pain. The patient was given IV Dilaudid, IV Zofran in the department. On re-evaluation , the patient was feeling improved. Lab results reviewed and showed significant leukocytosis with left shift. These lab results as well as overall ED course were discussed with Dr. Spencer Sandy, who recommended treatment as an outpatient with antibiotics for the patient's possible pyelonephritis and close follow-up. The primary diagnosis is kidney pain of unclear etiology. The patient was advised to have very close follow-up with his primary care physician as well as his specialist. I have low suspicion for acute abdomen, septicemia, or other emergent conditions at this time. Discharge: I have discussed the lab results and diagnostic findings with the patient and answered any questions or concerns. The patient was discharged with a prescription for cephalexin, Zofran, and [place]. The patient was advised to followup with their PMD in 1-2 days and to return to the Emergency Department if there are any new or worsening symptoms. The patient understood and agreed with the diagnosis, treatment and plan. The patient is stable for discharge at this time. Departure Diagnosis: Primary Impression: Flank pain Condition: Stable MELANIE ROMAN PA-C May 01, 2017 18:44
[2017-05-01 18:58] LABS: UR RBC 54 /HPF (0-5)
[2017-05-01 19:17] LABS: UR BACTERIA FEW /HPF (NONE SEEN)
[2017-05-01 19:24] LABS: ADD UMIC YES; UR ASCORBIC ACID NEGATIVE (NEGATIVE); UR BILIRUBIN (Dip) NEGATIVE (NEGATIVE); UR BLOOD (Dip) 3+ mg/dL (NEGATIVE); UR CLARITY SLIGHTLY CLOUDY (CLEAR); UR COLOR YELLOW (YELLOW); UR GLUCOSE (Dip) NEGATIVE (NEGATIVE); UR KETONES (Dip) TRACE mg/dL (NEGATIVE); UR LEUKOCYTE ESTERASE (Dip) TRACE Leu/ul (NEGATIVE); UR MUCUS FEW /HPF (NONE SEEN); UR NITRITE (Dip) NEGATIVE (NEGATIVE); UR SPECIFIC GRAVITY (Dip) 1.017 (1.003-1.030); UR TOTAL PROTEIN (Dip) NEGATIVE (NEGATIVE); UR UROBILINOGEN (Dip) NEGATIVE (NEGATIVE)
[2017-05-01] MEDS ORDERED: CEPH-443 PO (20:03)
[2017-05-01] MEDS ORDERED: HYDR-906 PO (20:03)
[2017-05-01] MEDS ORDERED: ONDA4TAB11 PO (20:23)
[2017-05-01 20:25] VITALS: BP 134/81; PULSE 79; RESP 16
== END 2017-05-01 20:26 | disposition home or self-care (01) ==
LOC: FTE 15:03
DX: R10.9 Unspecified abdominal pain (principal); R11.0 Nausea
CPT/HCPCS: 36415; 80053; 81001; 85025; 87086; 96372; 96374; 96375; J1170; J2405; Z7502; Z7610